=== PATIENT | female | born 1980 | race Asian ===

== ENCOUNTER 2017-05-29 02:14 | Outpatient (CLI) | payer BC ==
[~2017-05-29] VITALS: Ht 162.6 cm; Wt 68.6 kg
[~2017-05-29 02:14] MED LIST: MOTRIN 600600 MG/TAB PO; PERCOCET 325 MG1 TA2 PO; PRENATAL1 TA1 PO; SENOKOT S 50 MG1 TAB PO; SLOW FE45 MG PO
[2017-05-29 02:23] VITALS: BP 119/78; PULSE 58; TEMP 97.8
[2017-05-30] MEDS ORDERED: IBU800 M1 PO (07:23)
[2017-05-30] MEDS ORDERED: PERCOCET 325 MG1 TA2 PO (07:23)
== END 2017-05-29 04:05 | disposition home or self-care (01) ==
LOC: LDRO 02:14
DX: O09.523 Supervision of elderly multigravida, third trimester (principal); Z3A.38 38 weeks gestation of pregnancy

== ENCOUNTER 2017-05-29 09:29 | Inpatient (IN) | payer BC ==
[2017-05-29] VITALS (18 sets, daily range): BP systolic 102–147; BP diastolic 53–84; PULSE 61–107; TEMP 97.6–98.5
[~2017-05-29] VITALS: Ht 162.6 cm; Wt 69.1 kg
[2017-05-29 10:10] LABS: BASO % 0.2 % (0.0-2.0); EOS # 0.1 (0.0-0.7); EOS % 0.5 % (0-4.0); GRAN # 9.4 (1.4-6.5); GRAN % 79.9 % (42.2-75.2); LYMPH # 1.8 (1.2-3.4); LYMPH % 15.5 % (20.0-51.0); MEAN CELL VOLUME 63 fl (80.0-100.0); MEAN CORPUSCULAR HGB CONC 33 g/dl (33.0-37.0); MEAN PLATELET VOLUME 11.2 fl (7.4-10.4); MONO # 0.4 (0.1-0.6); MONO % 3.4 % (1.7-9.3); PLATELET COUNT 304 K/mm3 (130-400); RED BLOOD COUNT 5.04 M/mm3 (4.10-5.30); WHITE BLOOD COUNT 11.7 K/mm3 (4.8-10.8)
[2017-05-29 10:14] LABS: HEMATOCRIT 31.9 % (37.0-47.0); HEMOGLOBIN 10.4 g/dl (12.5-16.0); MEAN CORPUSCULAR HEMOGLOBIN 21 pg (27.0-31.0)
[2017-05-30] VITALS: BP 103/53; PULSE 78; TEMP 97.8
[2017-05-30 02:45] VITALS: BP 99/54; PULSE 71; TEMP 98
[2017-05-30] MEDS ORDERED: IBU800 M1 PO (07:23)
[2017-05-30] MEDS ORDERED: PERCOCET 325 MG1 TA2 PO (07:23)
[2017-05-30 08:30] VITALS: BP 85/45; PULSE 76; TEMP 98.7
== END 2017-05-30 14:10 | disposition home or self-care (01) | DRG 775 ==
LOC: OB 09:29 → LDR 09:36 → OB 17:00
PROVIDERS: Obstetrics & Gynecology
PROC: 10E0XZZ Delivery of Products of Conception, External Approach (ICD-10-PCS; principal; 2017-05-29)
PROC: 0KQM0ZZ Repair Perineum Muscle, Open Approach (ICD-10-PCS; 2017-05-29)
DX: O69.81X0 Labor and delivery complicated by cord around neck, without compression, not applicable or unspecified (principal); O70.1 Second degree perineal laceration during delivery; Z3A.38 38 weeks gestation of pregnancy; Z37.0 Single live birth
CPT/HCPCS: J2590; J7120